=== PATIENT | female | born 1965 | race Caucasian/White ===

== ENCOUNTER 2022-01-10 12:18 | Emergency (ER) | payer OTHER ==
[~2022-01-10] VITALS: Ht 160 cm; Wt 90.7 kg
--- NOTE | 2022-01-10 12:49 | NUR ---
ARRIVAL PRESENTED TO ED RM #5 VIA WHEELCHAIR WITH C/O LOWER BACK PAIN/RIGHT LOWER ABD/GROIN PAIN, RATES "9/10" X3 DAYS, RECENTLY DIAGNOSED WITH OA. TRIED IBUPROFEN AT HOME NO RELIEF. VS OBTAINED. DR. LOTT NOTIFED OF PATIENT ARRIVAL.
[2022-01-10 12:59] VITALS: BP_SYST 147; BP_SYST 153; BP_DIAS 120; BP_DIAS 123
--- NOTE | 2022-01-10 13:13 | ER.PDOC ---
General Chief Complaint: Lower Back Pain or Injury Stated Complaint: BACK PAIN,RIGHT LEG PAIN,RIGHT ARM NUMBNESS Time seen by MD: 13:13 Source: patient Exam Limitations: no limitations History of Present Illness Initial Comments Pt who reports a remote 20 yrs hx/o chronic low back pain due to disc herniation, presents c/o worsening low back pain radiating down her right lower ext and right groin x 3 days. Position changes worsens her pain and denies any improvement with Ibuprofen nor recent injury. Severity/Quality: severe Radiation: other (right lower ext and right groin) Modifying Factors: improves with movement (worsens pain) Allergies: Coded Allergies: aspirin (Verified Allergy, Unknown, 01/04/16) ceftriaxone (Verified Allergy, Unknown, 01/04/16) codeine (Verified Allergy, Unknown, 01/04/16) Past Medical History Medical History: hypertension, other Surgical History: cholecystectomy, hysterectomy, tubal Social History Alcohol Use: none Drug Use: none Review of Systems Constitutional: denies chills, denies fever Respiratory: denies cough, denies shortness of breath Cardiovascular: denies chest pain, denies palpitations Gastrointestinal: denies abdominal pain, denies constipation Musculoskeletal: back pain, joint pain (right hip / groin pain) Skin: denies change in color All Other Systems: Reviewed and Negative Physical Exam General Appearance: No Apparent Distress, WD/WN HEENT: PERRL/EOMI, Normal ENT Inspection Neck: Non-Tender, Normal Alignment Cardiovascular/Respiratory: Regular Rate, Rhythm, No M/R/G, Normal Peripheral Pulses, Normal Breath Sounds, No Respiratory Distress Gastrointestinal: Normal Bowel Sounds, No Organomegaly, No Pulsatile Mass, Non Tender, Soft Back: CVA Tenderness (R), Decreased Range Of Motion (lower back due to pain), Vertebral Tenderness (Lumbar spine at all levels tender to palpation), Other (+ right SLR test and + ) Extremities: No Evidence of Injury, Normal Range of Motion, Non-Tender, No Pedal Edema, Pelvis Stable Neuro/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: 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, 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, mood/effect nml, No Motor/Sensory Deficits, Relexes nml (Knee jerk reflex normal on the left, weak on the right.) Skin: Normal Color, Warm/Dry Results/Orders Results/Orders Orders - CR LOTT O Ketorolac Tromethamine (Toradol) (5/16/22 13:30) Methylprednisolone Sod Succ (Solu-Medrol (01/10/22 13:22) Ct Lumbar Wo Contrast (01/10/22 13:23) Methylprednisolone Sod Succ (Solu-Medrol (01/10/22 13:31) Ketorolac Tromethamine (Toradol) (01/10/22 13:31) Vital Signs Date Time Temp Pulse Resp B/P (MAP) Pulse Ox O2 Delivery O2 Flow Rate FiO2 01/10/22 12:59 98.4 111 19 100 01/10/22 12:59 98.4 111 19 01/10/22 12:59 98.4 108 19 153/123 (133) 100 Room Air* 0 21 Administered Medications Medications (Trade) Dose Ordered Sig/Bindu Route PRN Reason Start Time Stop Time Status Last Admin Dose Admin Ketorolac Tromethamine (Toradol) 60 mg OT ONCE IM 01/10/22 13:30 01/10/22 13:31 DC 01/10/22 13:36 60 MG Methylprednisolone Sodium Succinate (Solu-Medrol) 125 mg STAT STAT IM 01/10/22 13:22 01/10/22 13:24 DC 01/10/22 13:36 125 MG EKG/XRAY/CT/US CT Comments: Multilevel degenerative disc disease LS spine, bilateral pars defect L5 ER DEPART Departure Time of Disposition: 14:32 Disposition: 01 HOME / SELF CARE / HOMELESS Impression: Primary Impression: Acute exacerbation of chronic low back pain Additional Impression: Degenerative disc disease, lumbar Condition: Stable Referrals: LIDYA TORRES (PCP) PRIMARY CARE PROVIDER Additional Instructions: Fall and pain precautions advised. She is advised to follow up with a helpdesk specialist or Orthopaedic surgeon as soon as possible od return to the ER in the event of an emergency. Duration or Time Spent with Pa: 10 mins Problem Qualifiers CR LOTT MD January 10, 2022 13:13
[2022-01-10] MEDS ORDERED: SOLU-MEDROL IM STA (13:22)
[2022-01-10] MEDS ORDERED: TORADOL IM ONE (13:30)
[2022-01-10] MEDS ORDERED: TORADOL ONE (13:31)
[2022-01-10] MEDS ORDERED: SOLU-MEDROL ONE (13:31)
--- NOTE | 2022-01-10 14:22 | DIREP ---
PROCEDURE: CT SPINE LUMBAR W/O TECHNIQUE:Axial cuts were obtained through the lumbar spine. The images were viewed at bone settings. COMPARISON:None. INDICATIONS:low back pain, hx/o herniated disc FINDINGS: ALIGNMENT:Mild levoscoliosis at L1-L2. There is 3.7 mm retrolisthesis of L2 on L3. VERTEBRAE:Bilateral pars defects at L5. Vacuum changes in the sacroiliac joints. PARASPINAL AREA:Normal. OTHER:Arterial calcifications. Previous cholecystectomy LUMBAR DISC LEVELS T12-L1:Mild circumferential disc bulging. L1-L2:Disc narrowing with circumferential disc bulging contributing to central canal narrowing. There is bilateral facet arthrosis. L2-L3:Mild circumferential disc bulging contributing to central canal narrowing. There is bilateral facet arthrosis. There is bilateral foraminal narrowing. L3-L4:Disc narrowing with vacuum changes asymmetrically to the left. There is adjacent endplate sclerosis. There is mild circumferential disc bulging with bilateral facet arthrosis and ligamentum flavum thickening. L4-L5:Disc narrowing with vacuum changes. Bilateral facet arthrosis. L5-S1:Mild vacuum changes within the disc. Bilateral facet arthrosis. CONCLUSION: 1. Bilateral pars defects at L5. 2. Multilevel degenerative changes as above. 3. Mild levoscoliosis at L1-L2 and retrolisthesis of L2 on L3. 4. Atherosclerosis. Dictated by: Trey Wick M.D. on 01/10/2022 at 02:13 PM
== END 2022-01-10 14:48 | disposition home or self-care (01) ==
LOC: ER 12:18
DX: G89.29 Other chronic pain (principal); M54.50 Low back pain, unspecified; M51.36 Other intervertebral disc degeneration, lumbar region; I10 Essential (primary) hypertension; Z88.1 Allergy status to other antibiotic agents; Z88.5 Allergy status to narcotic agent; Z88.6 Allergy status to analgesic agent; Z90.49 Acquired absence of other specified parts of digestive tract; Z90.710 Acquired absence of both cervix and uterus
CPT/HCPCS: 72131; 96372 ×2; 99284; J1885; J2930

== ENCOUNTER 2023-02-03 15:31 | Emergency (ER) | payer SELFPAY ==
[~2023-02-03] VITALS: Ht 157.5 cm; Wt 81.6 kg
[2023-02-03 15:53] VITALS: BP_SYST 16; BP_SYST 165; BP_DIAS 87
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
--- NOTE | 2023-02-03 16:05 | NUR ---
DISPATCH NOTIFIED DISPATCH FOR THE NEED OF ANIMAL CONTROL
--- NOTE | 2023-02-03 16:27 | ER.PDOC ---
General Chief Complaint: Animal Bite Stated Complaint: DOG BITE Time seen by MD: 16:20 Source: patient, family Exam Limitations: no limitations History of Present Illness Initial Comments 57 yo F was bitten by a family pet/her son's fully vaccinated dog, and then fell and heard her left knee pop. Tetanus is not UTD, small puncture wound R knee. Also has some generalized pain in her left shoulder, which happened as she was wrestling the dog away without fall or traumatic blow. Onset: just prior to arrival Where: home Animal: dog Animal Appearance: appeared well Animal Immunizations: UTD Animal Disposition: Animal Known, Animal Captured, Can Be Observed, Animal Control Notified Context of Attack: entered animal's domain Severity of Injury: bitten Injury Location: upper extremity (just a strain of the L shoulder), lower extremity Associated Symptoms: pain on movement Allergies: Coded Allergies: aspirin (Verified Allergy, Unknown, 01/04/16) ceftriaxone (Verified Allergy, Unknown, 01/04/16) codeine (Verified Allergy, Unknown, 01/04/16) Past Medical History Medical History: hypertension Surgical History: cholecystectomy, hysterectomy, tubal Family History Significant Family History: no pertinent family hx Social History Smoking: cigarettes Alcohol Use: none Drug Use: none Reviewed Nursing Reviewed: Vital Signs, Abn. Noted, Nursing Assessment Review of Systems Constitutional: no symptoms reported Eyes: no symptoms reported Ears: no symptoms reported Nose: no symptoms reported Mouth: no symptoms reported Throat: no symptoms reported Respiratory: no symptoms reported Cardiovascular: no symptoms reported Gastrointestinal: no symptoms reported Genitourinary: no symptoms reported Musculoskeletal: see HPI Skin: see HPI Psychiatric/Neurological: no symptoms reported All Other Systems: Reviewed and Negative Physical Exam General Appearance: alert, no distress Skin: puncture (R leg near knee. nothing requiring suture repair.) Neuro/Vascular/Tendon: no vascular compromise Psych: mood/affect nml HEENT: atraumatic Neck: uninjured Resp/CVS: breath sounds nml Abdomen: non-tender Back: nml inspection Extremities: no infection (there is some otherwise nonspecirfic pain of the Left knee without deformity. L shoulder has full ROM without deformity or impediment, some pain with movement.) Results/Orders Results/Orders Orders - DEANNA PERRY MD Diph,Pertuss(Acell),Tet Vac/Pf (Boostrix (02/03/23 16:30) Naproxen (Naproxen 500mg) (02/03/23 16:26) Xr Knee Lt 3v (02/03/23 16:27) Vital Signs Date Time Temp Pulse Resp B/P (MAP) Pulse Ox O2 Delivery O2 Flow Rate FiO2 02/03/23 15:53 98.8 87 18 16/87 (64) 97 Room Air* 0 21 02/03/23 15:53 98.8 87 18 97 02/03/23 15:53 98.8 87 18 Administered Medications Medications (Trade) Dose Ordered Sig/Bindu Route PRN Reason Start Time Stop Time Status Last Admin Dose Admin Diphtheria/ Tetanus/Acell Pertussis (Boostrix) 0.5 ml ONCE ONCE IM 02/03/23 16:30 02/03/23 16:31 UNV 02/03/23 16:33 0.5 ML Naproxen (Naproxen 500mg) 500 mg STAT STAT PO 02/03/23 16:26 02/03/23 16:27 UNV 02/03/23 16:33 500 MG Progress Progress MDM L knee films interpreted by me: NAD We will update tetanus. Rabies prophylaxis is not indicated. Some naproxen for pain. ER DEPART Departure Time of Disposition: 17:23 Disposition: 01 HOME / SELF CARE / HOMELESS Impression: Primary Impression: Dog bite of right lower leg Additional Impressions: Sprain of left knee Sprain of left shoulder Condition: Stable Patient Instructions: Animal Bite, [id number], Knee Sprain, [id number], Shoulder Sprain Referrals: LIDYA TORRES (PCP) PRIMARY CARE PROVIDER Additional Instructions: Good wound care with neosporin and bandages for the bite. Medications as direct ed. Follow the instructions of the animal ride manager. Follow up as needed. Duration or Time Spent with Pa: 15 min Problem Qualifiers DEANNA PERRY MD Feb 03, 2023 16:27
[2023-02-03] MEDS ORDERED: NAPROXEN 500MG PO ONE (16:29)
[2023-02-03] MEDS ORDERED: BOOSTRIX IM ONE (16:29)
[2023-02-03] MEDS: NAPROXEN 500MG PO STA (16:33)
[2023-02-03] MEDS: BOOSTRIX IM ONE (16:33)
--- NOTE | 2023-02-03 17:26 | DIREP ---
PROCEDURE:XRAY KNEE 3 VIEWS-LT COMPARISON:None. INDICATIONS:fall, left knee trauma/pop FINDINGS: BONES:Normal osseous mineralization. No displaced fracture dislocation. No destructive osseous lesions. JOINTS:Mild tricompartmental osteophytic spurring. The joint space is preserved. No substantial effusion. SOFT TISSUES:The extensor mechanism shadow is intact. OTHER:No additional findings. CONCLUSION: No acute osseous abnormality. Dictated by: Jose Doss MD. on 02/03/2023 at 05:24 PM
[2023-02-03 17:31] VITALS: BP 174/109
== END 2023-02-03 17:32 | disposition home or self-care (01) ==
LOC: ER 15:31
DX: S83.92XA Sprain of unspecified site of left knee, initial encounter (principal); S43.402A Unspecified sprain of left shoulder joint, initial encounter; S81.851A Open bite, right lower leg, initial encounter; I10 Essential (primary) hypertension; F17.210 Nicotine dependence, cigarettes, uncomplicated; Z90.49 Acquired absence of other specified parts of digestive tract; Z90.710 Acquired absence of both cervix and uterus; Z98.51 Tubal ligation status; Z88.1 Allergy status to other antibiotic agents; Z88.5 Allergy status to narcotic agent; Z88.6 Allergy status to analgesic agent; W54.0XXA Bitten by dog, initial encounter; Y93.72 Activity, wrestling; Y92.89 Other specified places as the place of occurrence of the external cause; Y99.8 Other external cause status
CPT/HCPCS: 90471; 90715; 99284; 73562-LT

== ENCOUNTER → 2024-04-19 | Outpatient (CLI) | payer MEDICARE | END | disposition home or self-care (01) | LOC: RAD 10:39 | PROVIDERS: ATTEND Nurse Practitioner Family | DX: M19.071 Primary osteoarthritis, right ankle and foot (principal); M77.31 Calcaneal spur, right foot | CPT/HCPCS: 73630-RT ==

== ENCOUNTER 2024-06-18 21:23 | Emergency (ER) | payer MEDICARE ==
[~2024-06-18] VITALS: Ht 157.5 cm; Wt 83.9 kg
[2024-06-18 21:25] VITALS: BP 133/78; PULSE 85; RESP 18; TEMP 98.5; O2SAT 96
[2024-06-18 22:06] LABS: BASOPHIL % 0.3 % (0.1-1.2); EOSINOPHIL # 0.2 10^3/uL (0.0-0.2); EOSINOPHIL % 2.7 % (0.0-5.0); HEMATOCRIT(ML) 40.4 % (36.0-46.0); HEMOGLOBIN 12.5 g/dL (12.0-15.0); LYMPHOCYTES # 1.58 10^3/uL1 (1.0-4.8); LYMPHOCYTES % 22.5 % (24.0-44.0); MEAN CORP HGB 28.7 pg (26-34); MEAN CORP HGB CONCENTRATION 30.9 g/dL (33-36.5); MEAN CORP VOLUME 92.7 fL (78-100); MONOCYTES # 0.6 10^3/uL (0.3-0.8); NEUTROPHIL # 4.6 10^3/uL (1.8-7.7); NEUTROPHILS % 65.4 % (41.0-85.0); PLATELET COUNT 294 10^3/uL (150-400); RED BLOOD CELL 4.36 10^6/uL (4.00-5.20); RED CELL DISTRIBUTION WIDTH 14.4 % (11.5-14.5)
[2024-06-18 22:10] LABS: +ADD MANUAL DIFF(NO CHRG) NO
[2024-06-18 22:23] LABS: INR 0.9; PROTHROMBIN PROTIME 9.8 SEC (9.7-11.6)
[2024-06-18 22:25] VITALS: BP 149/89; PULSE 86; RESP 18; TEMP 98.5; O2SAT 93
[2024-06-18 22:32] LABS: ALBUMIN(ML) 3.4 g/dL (3.4-5.0); ALBUMIN/GLOBULIN RATIO 0.918; ANION GAP 10.9; BUN/CREATININE RATIO 7.6 (10.0-20.0); CALCIUM 8.7 mg/dL (8.4-10.5); CARBON DIOXIDE 30.7 mmol/L (20.0-32); CREATININE SERUM 0.92 mg/dL (0.59-1.40); EST GFR, NON-AA 62.5 (>/=60); POTASSIUM 3.6 mmol/L (3.6-5.2)
[2024-06-18 23:25] VITALS: BP 129/89; PULSE 81; RESP 18; TEMP 98.5; O2SAT 93
[2024-06-18] MEDS ORDERED: LASIX ONE (23:34)
[2024-06-18] MEDS ORDERED: TORADOL ONE (23:42)
[2024-06-18] MEDS: TORADOL IV STA (23:42)
[2024-06-18] MEDS: LASIX IV STA (23:42)
== END 2024-06-18 23:45 | disposition home or self-care (01) ==
LOC: ER 21:23
DX: R60.0 Localized edema (principal); I10 Essential (primary) hypertension; Z90.49 Acquired absence of other specified parts of digestive tract; Z90.710 Acquired absence of both cervix and uterus; Z98.51 Tubal ligation status; Z88.1 Allergy status to other antibiotic agents; Z88.5 Allergy status to narcotic agent; Z88.6 Allergy status to analgesic agent
CPT/HCPCS: 99285; 96374; 71045; 96375; 80053; 85025; 36415; 84484; 83880; 85610; 85730; 93005; J1940; J1885